=== PATIENT | male | born 2000 | race Two or more races ===

== ENCOUNTER 2019-09-25 12:32 | Outpatient (CLI) | payer OTHER | END 2019-09-25 12:33 | disposition home or self-care (01) | LOC: DTY/OP 12:32 | PROVIDERS: ATTEND Surgery | DX: E66.01 Morbid (severe) obesity due to excess calories (principal) | CPT/HCPCS: 97802 ==

== ENCOUNTER 2019-10-25 08:54 | Outpatient (CLI) | payer OTHER | END 2019-10-25 08:55 | disposition home or self-care (01) | LOC: DTY/OP 08:54 | PROVIDERS: ATTEND Surgery | DX: E66.01 Morbid (severe) obesity due to excess calories (principal) | CPT/HCPCS: 97802 ==

== ENCOUNTER 2019-11-01 10:38 | Outpatient (CLI) | payer OTHER | END 2019-11-01 10:39 | disposition home or self-care (01) | LOC: DTY/OP 10:38 | PROVIDERS: ATTEND Surgery | DX: E66.01 Morbid (severe) obesity due to excess calories (principal) | CPT/HCPCS: 97802 ==

== ENCOUNTER 2019-11-15 16:43 | Outpatient (CLI) | payer OTHER | END 2019-11-15 16:44 | disposition home or self-care (01) | LOC: DTY/OP 16:43 | PROVIDERS: ATTEND Surgery | DX: E66.01 Morbid (severe) obesity due to excess calories (principal) | CPT/HCPCS: 97802 ==

== ENCOUNTER 2019-11-22 11:23 | Outpatient (CLI) | payer OTHER | END 2019-11-22 11:24 | disposition home or self-care (01) | LOC: DTY/OP 11:23 | PROVIDERS: ATTEND Surgery | DX: E66.01 Morbid (severe) obesity due to excess calories (principal) | CPT/HCPCS: 97802 ==

== ENCOUNTER 2019-11-28 09:41 | Outpatient (CLI) | payer OTHER | END 2019-11-28 09:42 | disposition home or self-care (01) | LOC: DTY/OP 09:41 | PROVIDERS: ATTEND Surgery | DX: E66.01 Morbid (severe) obesity due to excess calories (principal) | CPT/HCPCS: 97802 ==

== ENCOUNTER 2019-11-29 15:57 | Outpatient (CLI) | payer OTHER | END 2019-11-29 15:58 | disposition home or self-care (01) | LOC: DTY/OP 15:57 | PROVIDERS: ATTEND Surgery | DX: E66.01 Morbid (severe) obesity due to excess calories (principal) | CPT/HCPCS: 97802 ==

== ENCOUNTER 2019-12-03 09:10 | Outpatient (CLI) | payer OTHER | END 2019-12-03 09:11 | disposition home or self-care (01) | LOC: DTY/OP 09:10 | PROVIDERS: ATTEND Surgery | DX: E66.01 Morbid (severe) obesity due to excess calories (principal) | CPT/HCPCS: 97802 ==

== ENCOUNTER 2019-12-05 10:36 | Outpatient (CLI) | payer OTHER | END 2019-12-05 10:37 | disposition home or self-care (01) | LOC: DTY/OP 10:36 | PROVIDERS: ATTEND Surgery | DX: E66.01 Morbid (severe) obesity due to excess calories (principal) | CPT/HCPCS: 97802 ==

== ENCOUNTER 2019-12-06 12:27 | Outpatient (CLI) | payer OTHER | END 2019-12-06 12:28 | disposition home or self-care (01) | LOC: DTY/OP 12:27 | PROVIDERS: ATTEND Surgery | DX: E66.01 Morbid (severe) obesity due to excess calories (principal) | CPT/HCPCS: 97802 ==

== ENCOUNTER 2019-12-30 18:00 | Outpatient (CLI) | payer OTHER | END 2019-12-30 18:01 | disposition home or self-care (01) | LOC: SLEEPLAB 18:00 | PROVIDERS: ATTEND Otolaryngology | DX: G47.33 Obstructive sleep apnea (adult) (pediatric) (principal); R06.83 Snoring; R53.83 Other fatigue | CPT/HCPCS: 95806 ==

== ENCOUNTER 2020-02-10 06:42 | Outpatient (CLI) | payer OTHER ==
--- NOTE | 2020-02-10 13:04 | RAD ---
XR Chest Pa Lat STANDARD History: Preop evaluation Comparison: None. Findings: Lungs are clear. No pneumothorax or effusion. Cardiac silhouette and mediastinal contours a re within normal limits. No acute osseous abnormality. Impression: No acute intrathoracic abnormality.
[2020-02-10 14:03] LABS: #Eosinphils 0.1 10x3/uL (0.0-0.5); #Monocytes 0.5 10x3/uL (0.0-1.1); #Neutrophils 2.7 10x3/uL (1.5-8.4); %Basophils 0.6 % (0.0-2.0); %Eosinophils 2.3 % (0.0-6.0); %Lymphocytes 30.8 % (18.0-47.0); %Monocytes 10.4 % (0.0-10.0); %Neutrophils 55.7 % (40.0-75.0); Hemoglobin 16.1 g/dL (14.0-18.0); Mean Corpuscular HGB CONC 35.2 G/DL (32.0-36.0); Mean Corpuscular Hemoglobin 32.4 PG (27.0-33.0); Mean Platelet Volume 10.5 fl (7.4-10.4); Platelet Count 229 10x3/uL (130-400); RBC Distribution Width 11.9 % (11.5-14.5); Red Blood Cell (RBC) Count 4.97 10x6/uL (4.40-5.80); White Blood Cell (WBC) Count 4.8 10x3/uL (4.5-11.0)
[2020-02-10 14:09] LABS: ALT (SGPT) 88 U/L (8-55); AST (SGOT) 48 U/L (5-34); Albumin 4.8 g/dL (3.5-5.0); Alkaline Phosphatase 65 U/L (50-130); Anion Gap 15 mmol/L (10-20); BUN (Urea Nitrogen) 11 mg/dL (8.9-20.6); Bilirubin, Total 0.9 mg/dL (0.2-1.2); Calc. Creatinine Clearance 0 mL/min (70-130); Calcium 9.3 mg/dL (7.8-10.44); Carbon Dioxide 22 mmol/L (22-29); Chloride 106 mmol/L (98-107); Globulin 2.4 g/dL (2.4-3.5); Glucose 99 mg/dL (70-105); Potassium 4.3 mmol/L (3.5-5.1); Protein, Total 7.2 g/dL (6.0-8.3); Sodium 139 mmol/L (136-145)
[2020-02-10 21:01] LABS: Hemoglobin A1c 5.5 % (4.0-6.0)
[2020-02-11 06:19] LABS: SARS-CoV-2 MS2 Positive; SARS-CoV-2 N Gene Positive; SARS-CoV-2 S Gene Positive; SARS-CoV-2 by NAA DETECTED (NotDetected); SARS-CoV-2 orf1ab Positive
== END 2020-02-10 06:43 | disposition home or self-care (01) ==
LOC: LABBT 06:42
PROVIDERS: ATTEND Surgery
DX: U07.1 COVID-19 (principal); Z01.818 Encounter for other preprocedural examination; E66.01 Morbid (severe) obesity due to excess calories
CPT/HCPCS: 71046; 80053; 83036; 85025; 87635; 93005; 93010; U0003